=== PATIENT | female | born 1980 | race Caucasian/White ===

== ENCOUNTER → 2023-05-20 13:49 | Outpatient (CLI) | payer BC, SELFPAY ==
--- NOTE | ~2023-05-20 | US_ITS ---
EXAMINATION: US thyroid DATE: 05/20/2023 14:13 INDICATION: Abnormal thyroid levels TECHNIQUE: Multiple ultrasound images of the thyroid were obtained. COMPARISON: None. FINDINGS: The right thyroid lobe measures 4.8 x 1.5 x 1.9 cm. The left thyroid lobe measures 4.7 x 1.3 x 1.8 c m. There are couple small bladder than tall solid nodules with ill-defined margins and without echog enic foci (TI-RADS 4, moderately suspicious , FNA if >=1.5 cm, annual followup is >=1 cm) measuring 7 mm in the mid left thyroid and 1.3 cm the inferior left thyroid. There is normal echotexture, echoge nicity and vascular flow throughout the remainder of the thyroid gland. IMPRESSION: 1. Couple small TI RADS 4 nodules in the left thyroid largest measuring 1.3 similar which remains bel ow threshold for biopsy but for which annual ultrasound follow-up would be recommended. Reviewed, dictated and finalized at location B. IMPRESSION: 1. Couple small TI RADS 4 nodules in the left thyroid largest measuring 1.3 sim ilar which remains below threshold for biopsy but for which annual ultrasound f ollow-up would be recommended.
== END ==
PROVIDERS: PCP Nurse Practitioner Family; Visit Provider Nurse Practitioner Family
DX: R94.6 Abnormal results of thyroid function studies (principal)
CPT/HCPCS: 76536

== ENCOUNTER → 2023-07-29 13:48 | Outpatient (CLI) | payer BC, SELFPAY ==
--- NOTE | ~2023-07-29 | MM_ITS ---
EXAMINATION: MM screening [facility] BI w marychuy HISTORY: Screening mammogram TECHNIQUE: Craniocaudal and mediolateral oblique 3-D tomosynthesis images were obtained and synthetic 2-D images were generated. CAD analysis was submitted and interpreted. COMPARISON: No prior mammogram is available for comparison at this institution. BREAST PARENCHYMAL COMPOSITION: There are scattered areas of fibroglandular density. FINDINGS: There is no evidence of suspicious mass, calcification, or architectural distortion to sugg est malignancy in either breast. IMPRESSION: 1. No mammographic evidence of malignancy. 2. Recommend routine screening mammography in one year. BI-RADS Category 1: Negative Reviewed, dictated and finalized at location A.
== END ==
PROVIDERS: PCP Nurse Practitioner; Visit Provider Nurse Practitioner
DX: Z12.31 Encounter for screening mammogram for malignant neoplasm of breast (principal)
CPT/HCPCS: 77063; 77067